=== PATIENT | female | born 1945 | race Caucasian/White ===

== ENCOUNTER 2016-12-18 23:38 | Inpatient (IN) | payer MEDICARE ==
[~2016-12-18] VITALS: Ht 152.4 cm; Wt 53.2 kg
--- NOTE | 2016-12-19 00:10 | NUR ---
Pt to room via w/c actively wretching. Pt c/o severe N/V with blood in emesis for the last few hours. Pt sts she has history of a hernia that causes GERD and has similar event in the past. Pt seen by . 2 large bore IV's established, labs drawn and sent. Pt medicated for vomiting will monitor for effects of medication. Fluid bolus infusing freely to gravity. Pt NSR on monitor. Pt repositioned for comfort.
[2016-12-19 00:21] LABS: BILIRUBIN,DIRECT 0.1 mg/dL (0.0-0.2); BILIRUBIN,TOTAL 0.7 mg/dL (0.2-1.0); CREATININE 0.8 mg/dL (0.6-1.3); POTASSIUM 3.5 mmol/L (3.5-5.1); TOTAL PROTEIN, SERUM 7.8 g/dL (6.4-8.2)
[2016-12-19 00:51] LABS: ABG BASE EXCESS -0.9 mmol/L; ABG HCO3 25.2 mmol/L; ABG PCO2 47.4 mmHg (35.0-45.0); ABG PH 7.343 (7.350-7.450); ABG PO2 28.9 mmHg (75.0-100.0); ABG SITE LEFT BRACHIAL; ABG TOTAL HEMOGLOBIN 12.7 G/dL (12.0-16.0); COHb 1.1 % (0.5-1.5); MetHb 0.6 % (0.0-1.5); O2Hb 51.9 % (94.0-97.0); VENT MODE Room Air
[2016-12-19 00:51] LABS: BASOPHILS % (AUTO) 0.1 % (0.0-2.0); EOSINOPHILS % (AUTO) 1.8 % (0.0-7.0); HEMATOCRIT 38.7 % (37-47); HEMOGLOBIN 12.8 G/DL (12.0-16.0); LYMPHOCYTES % (AUTO) 4.2 % (20.5-51.5); MEAN CORPUSCULAR HEMOGLOBIN 32.1 UUG (27.0-31.0); MEAN CORPUSCULAR HGB CONC 33 g/dL (32.0-37.0); MEAN CORPUSCULAR VOLUME 97.4 FL (81.0-99.0); MONOCYTES % (AUTO) 4.1 % (0.0-11.0); NEUTROPHILS % (AUTO) 89.8 % (38.5-71.5); PLATELET COUNT (AUTO) 247 K/UL (150-450); RED BLOOD CELL COUNT(AUTO) 3.97 MIL/UL (4.2-5.4)
[2016-12-19 00:52] LABS: WHITE BLOOD COUNT (AUTO) 8.3 K/UL (4.0-11.2)
--- NOTE | 2016-12-19 01:07 | NUR ---
No further vomiting noted. Pt resting in position of comfort for self. First liter bolus completed, second liter bolus started, infusing freely to gravity. Pt placed on [address] Guidry. Pt has no complaints at this time.
[2016-12-19 02:38] LABS: *BILIRUBIN,URIN NEGATIVE (NEGATIVE); *CLARITY,URINE CLEAR (CLEAR); *COLOR,URINE YELLOW (YELLOW); *KETONES,URINE 1+ (NEGATIVE); *PROTEIN,URINE TRACE (NEGATIVE); *UROBILINOGEN,URINE 0.2 E.U./dl (NORMAL); LEUKOCYTE ESTERASE ,URINE NEGATIVE (NEGATIVE); NITRITE, URINE NEGATIVE (NEGATIVE); PH,URINE 8.5 (5.0-8.0); UGLUCOSE NEGATIVE (NEGATIVE)
--- NOTE | 2016-12-19 02:43 | NUR ---
pt up to bedside commode. UA collected and sent. Pt c/o nausea coming back and also developed pain. Dr. Guidry notified. Pt medicated, will monitor for effects of medication. Repeat blood work drawn and sent.
[2016-12-19 02:48] LABS: *BLOOD, URINE TRACE (NEGATIVE)
[2016-12-19 02:49] LABS: ABG BASE EXCESS 0.4 mmol/L; ABG HCO3 25.4 mmol/L; ABG PCO2 42.4 mmHg (35.0-45.0); ABG PH 7.395 (7.350-7.450); ABG PO2 38.4 mmHg (75.0-100.0); ABG SITE LEFT BRACHIAL; COHb 1.2 % (0.5-1.5); MetHb 0.6 % (0.0-1.5); O2Hb 74.5 % (94.0-97.0); VENT MODE ROOM AIR
[2016-12-19 02:49] LABS: BACTERIA,URINE NONE SEEN /HPF (NONE SEEN); SQUAMOUS EPITHELIAL CELL,UR FEW /HPF (NONE SEEN); WBC,URINE 0-3 /HPF (0-3)
[2016-12-19 02:50] LABS: RED BLOOD CELL CASTS,URINE 0-3 /LPF (NONE SEEN)
--- NOTE | 2016-12-19 03:08 | NUR ---
Pt started to c/o severe lower back pain. Dr. Guidry notified. Pt medicated, will monitor for effects of medication.
--- NOTE | 2016-12-19 03:20 | NUR ---
Report called to NAJMA Oneal. Preparing to transfer pt to the floor.
--- NOTE | 2016-12-19 04:15 | NUR ---
Pt sts pain slightly improved. Pt appears less restless.
--- NOTE | 2016-12-19 04:17 | NUR ---
Pt received in [facility] from ER into Tele unit. Report given by ANJMA Spangler. C/o nause with no vomitting at this time. Pain verbalized 09/10. On Oxygen via n/c 2L/min continuous. Family at bedside. Denies any chest pain or shortness of breathe. Vital signs WNL. Diet received NPO. Pt made aware. Call light placed within reach.
[2016-12-19 07:03] LABS: BILIRUBIN,DIRECT 0.1 mg/dL (0.0-0.2); BILIRUBIN,TOTAL 0.6 mg/dL (0.2-1.0); TOTAL PROTEIN, SERUM 6.7 g/dL (6.4-8.2)
--- NOTE | 2016-12-19 08:00 | NUR ---
RECEIVED PATIENT IN BED AWAKE ALERT AND ORIENTED EDUCATED MORE ON THE PROPOSED PROCEDURE AND THAT SHE MUST BE NPO UNTIL SEEN BY THE DOCTOR FOR FURTHER ORDERS AND SHE EXPRESSED UNDERSTANDING DENIES NAUSEA OR VOMITING AT THIS TIME
--- NOTE | 2016-12-19 08:55 | NUR ---
PATIENT CAME UP TO THE NURSES STATION AND STATED THAT HER IS HERE DOWN STAIRS TO PICK HER UP STATED THAT THEY HAVE DECIDED TO LEAVE [facility] AND THEN GO TO HER OWN DOCTOR IN [place] CALLED AND NOTIFIED DR DOWELL AND HE STATED THAT IF PATIENT WANTS TO LEAVE SHE WILL NEED TO LEAVE AGAINST MEDICAL ADVISE SO PATIENT AWARE
--- NOTE | 2016-12-19 09:00 | NUR ---
PATIENT SIGNED THE AGAINST MEDICAL ADVISE FORM AND STATED UNABLE TO WAIT FOR THE DISCHARGE PAPERS STATED THAT HER IS ALREADY WAITING DOWNSTAIRS FOR HER SO [employer],TELEMETRY AND ARM BAND REMOVED AND PATIENT ESCORTED TO THE LOBBY WITH ALL HER PERSONAL BELONGINGS IN SATISFACTORY CONDITION SHE WAS INSTRUCTED TO FOLLOW UP SOON POSSIBLE WITH HER PRIMARY DOCTOR OD GO BACK TO THE NEAREST EMERGENCY ROOM IF NAUSEA OR VOMITING RETURNS AND SHE EXPRESSED UNDERSTANDING
[2016-12-19 10:35] LABS: HEMOGLOBIN 11.4 G/DL (12.0-16.0); RED BLOOD CELL COUNT(AUTO) 3.55 MIL/UL (4.2-5.4); WHITE BLOOD COUNT (AUTO) 6.9 K/UL (4.0-11.2)
[2016-12-19 10:36] LABS: BASOPHILS % (AUTO) 0.2 % (0.0-2.0); EOSINOPHILS % (AUTO) 0.4 % (0.0-7.0); HEMATOCRIT 34.5 % (37-47); LYMPHOCYTES % (AUTO) 4.8 % (20.5-51.5); MEAN CORPUSCULAR HEMOGLOBIN 32.1 UUG (27.0-31.0); MEAN CORPUSCULAR HGB CONC 33 g/dL (32.0-37.0); MEAN CORPUSCULAR VOLUME 97.1 FL (81.0-99.0); MONOCYTES % (AUTO) 4.1 % (0.0-11.0); NEUTROPHILS % (AUTO) 90.5 % (38.5-71.5); PLATELET COUNT (AUTO) 229 K/UL (150-450)
== END 2016-12-19 09:00 | disposition left against medical advice (07) | DRG 378 ==
LOC: ER 23:38 → TELE 12-19 03:51
PROVIDERS: ADMIT Internal Medicine; ATTEND Internal Medicine
DX: K92.2 Gastrointestinal hemorrhage, unspecified (principal); E87.2 Acidosis; E88.09 Other disorders of plasma-protein metabolism, not elsewhere classified; E11.9 Type 2 diabetes mellitus without complications; D64.9 Anemia, unspecified; I51.7 Cardiomegaly; J45.909 Unspecified asthma, uncomplicated; K21.9 Gastro-esophageal reflux disease without esophagitis; K44.9 Diaphragmatic hernia without obstruction or gangrene; Z96.659 Presence of unspecified artificial knee joint; Z87.01 Personal history of pneumonia (recurrent); Z87.898 Personal history of other specified conditions
CPT/HCPCS: 36415; 36600; 70030-TC; 71010; 82105; 83690; 85025; 85610; 86850; 86900; 86901; 87040; 87086; 93005; A4663; C9113; J1200; J2270; J2405; J2765; J7030